=== PATIENT | female | born 1950 | race Caucasian/White ===

== ENCOUNTER 2019-01-21 05:50 | Day surgery (SDC) | payer MEDICARE, OTHER ==
[2019-01-20 12:18] LABS: HEMATOCRIT 42.7 % (36.0-48.0); HEMOGLOBIN 14.4 g/dL (12-16); MCHC 33.7 g/dL (31.0-37.0); MEAN PLATELET VOLUME 9.2 fL (7.4-10.4); RBC 4.8 10x6/uL (4.00-5.40); RDW 12.6 % (11.5-14.5); WBC 6.5 10x3/uL (4.8-10.8)
[~2019-01-21] VITALS: Ht 170.2 cm; Wt 70.5 kg
[~2019-01-21 05:50] MED LIST: ELIQUIS5 MG PO; MULTAQ400 MG PO; PRAVACHOL40 MG PO; THEREMS-M1 TAB PO
[2019-01-21 06:23] VITALS: BP 125/76; Ht 170.2 cm; Wt 70.5 kg
[2019-01-21] MEDS ORDERED: HYDROCODON-ACE1 EA10 PO (08:51)
--- NOTE | 2019-01-21 11:42 | NUR ---
PT GOT UP TP BATHROOM AND UNABLE TO URINATE. RECIEVED 500ML OF IV FLUID. DRINKING FLUID
--- NOTE | 2019-01-21 14:31 | NUR ---
IV VOIDED 1350 IV REMOVED 1400 PT DISCHARGED
--- NOTE | 2019-01-23 07:51 | OP ---
PATIENT NAME: ARLET GARCIA MEDICAL RECORD: [id number] :50 LOCATION:[place] ADMISSION DATE: SURGEON: FRED AMAYA MD DATE OF OPERATION: 01/21/2019 PREOPERATIVE DIAGNOSES: 1. Bleeding internal hemorrhoids. 2. Atrial fibrillation. 3. Oqmmg-Tisgpntpg-Rrcwi syndrome. POSTOPERATIVE DIAGNOSES: 1. Bleeding internal hemorrhoids. 2. Atrial fibrillation. 3. Winlh-Irhyrblye-Unpxt syndrome. PROCEDURE: PPH stapled hemorrhoidectomy. SURGEON: Fred Amaya MD REPORT OF PROCEDURE: The patient was placed in the jackknife prone position and the perianal region was prepped and draped in sterile fashion. A 360 degree inspection was performed, it showed a large amount of redundant hemorrhoidal tissue. This appeared to be mixed, but it was mainly an internal component. We were able to reduce this with manual manipulation. We then inspected the area and can see that it was 360 degree circumferential hemorrhoidal tissue expansion. There was no sign of any active bleeding currently and there are no masses or lesions present. The PPH anoscope was inserted and it was sutured down on all sides using interrupted 3-0 silks. We inserted the PPH scope and was able to place a 2-0 Prolene in a pursestring fashion around the distal aspect of the rectum. We had a counter stitch that was placed opposite of this suture and with these in place we were able to place the stapler into the rectum and pulling up on the sutures we were able to clamp down the tissue with the stapler and the stapler was fired removing a large ring of intact tissue. At the conclusion of this, we inspected the staple line. There was one area of bleeding on the anterior side just to the left of midline and this was oversewed with a [id number] 2-0 chromic. The remainder of the tissue did not have any evidence of any bleeding. We then irrigated out the rectal tissue and the staple line with normal saline. We then removed the PPH anoscope. The hemorrhoidal tissue was greatly improved and the redundant tissue externally had been pulled back into the anal and rectal region. There was no sign of active bleeding and no signs of any thrombosed hemorrhoidal tissue. At this point, a piece of Gelfoam dipped in [place] was placed in the anus. COMPLICATIONS: None. CONDITION: Stable. ANESTHESIA: General endotracheal. BLOOD LOSS: Minimal. TRANSINT:[id number] Voice Confirmation ID: [id number] DOCUMENT ID: [id number] OPERATIVE REPORT [id number] ARLET GARCIA CHRISTIAN MD at 0751 CC: OLE SHANE [id number] DICTATION DATE: 01/21/19 0858 AERIAL INSTALLER: 01/21/19 1055 [facility] 01/21/[address] [id number]
== END 2019-01-21 14:00 | disposition home or self-care (01) ==
LOC: D.OPS 05:50 → D.PAN 08:00 → D.OPS 14:00
PROVIDERS: Anesthesiology; ATTEND Surgery
DX: K64.4 Residual hemorrhoidal skin tags (principal); K64.8 Other hemorrhoids; I48.91 Unspecified atrial fibrillation; I45.6 Pre-excitation syndrome; Z01.812 Encounter for preprocedural laboratory examination

== ENCOUNTER → 2019-04-29 08:40 | Outpatient (CLI) | payer MEDICARE, OTHER ==
[2019-01-21 06:23] VITALS: BMI 24.3
[~2019-04-29 08:40] MED LIST changes: +HYDROCODON-ACE1 EA10 PO
== END | disposition home or self-care (01) ==
LOC: D.US 08:40
PROVIDERS: ATTEND Family Medicine
DX: R10.10 Upper abdominal pain, unspecified (principal)

== ENCOUNTER → 2019-05-08 08:11 | Outpatient (CLI) | payer MEDICARE, OTHER ==
[2019-01-21 06:23] VITALS: BMI 24.3
== END | disposition home or self-care (01) ==
LOC: D.NM 08:11
PROVIDERS: ATTEND Family Medicine
DX: R10.10 Upper abdominal pain, unspecified (principal)